=== PATIENT | female | born 1945 | race Caucasian/White ===

== ENCOUNTER 2017-05-28 08:37 | Outpatient (CLI) | payer MEDICARE | END 2017-05-28 08:38 | disposition home or self-care (01) | LOC: BICMAMMO 08:37 | PROVIDERS: ATTEND Internal Medicine | DX: Z12.31 Encounter for screening mammogram for malignant neoplasm of breast (principal) | CPT/HCPCS: 77067; G0202 ==

== ENCOUNTER 2018-01-01 07:42 | Outpatient (CLI) | payer MEDICARE ==
--- NOTE | 2018-01-01 10:32 | CT ---
CONTRAST ENHANCED CT IMAGES OF ABDOMEN AND PELVIS: Date: 01/01/18 HISTORY: Abdominal pain. Patient with previous history of umbilical hernia repair. FINDINGS: Contrast enhanced CT images of abdomen and pelvis demonstrate the lung bases to be unremarkable. No e vidence of free intraperitoneal air seen. The liver and spleen are unremarkable. The pancreas is unremarkable. The gallbladder has been surgica lly removed. Adrenal glands and kidneys are unremarkable. No evidence of periaortic lymphadenopathy seen. No dilated loops of small bowel seen. A normal appendix is visualized. The colon is unremarkable. No definite evidence of colonic distention seen. Anterior periumbilical midline area of postsurgical changes seen. No evidence of recurrent hernias seen. Some postoperative changes are noted in the region. No other sign ificant acute abnormality is seen. Severe L5-S1 vacuum disc changes seen. Bilateral facet hypertrophic changes also seen at L5-S1 facet joints. IMPRESSION: Unremarkable contrast enhanced CT images of the abdomen and pelvis. POS: [facility]
== END 2018-01-01 07:43 | disposition home or self-care (01) ==
LOC: SCSCT 07:42
PROVIDERS: ATTEND Specialist
DX: R10.9 Unspecified abdominal pain (principal)
CPT/HCPCS: 74177; 82565

== ENCOUNTER 2018-05-31 07:56 | Outpatient (CLI) | payer MEDICARE | END 2018-05-31 07:57 | disposition home or self-care (01) | LOC: BICMAMMO 07:56 | PROVIDERS: ATTEND Internal Medicine | DX: Z12.31 Encounter for screening mammogram for malignant neoplasm of breast (principal) | CPT/HCPCS: 77063; 77067 ==

== ENCOUNTER 2019-01-31 07:30 | Day surgery (SDC) | payer MEDICARE ==
[2019-01-30 10:48] VITALS: BMI 29.1
--- NOTE | 2019-01-31 09:33 | NM ---
NM Lymphoscintigraphy HISTORY: Melanoma of the left upper back RADIOPHARMACEUTICAL: 418 uCi of technetium 99m filtered sulfur colloid. Perilesional injection in div ided doses. FINDINGS: There is visualization of lymph nodes in the left supraclavicular and axillary regions. IMPRESSION: Silvis lymph node(s) in the left axilla and supraclavicular region.
[2019-01-31] MEDS ORDERED: ceFAZolin Sodium (SDC) 2 GM/100 ML BAG ONE (09:57)
[2019-01-31] MEDS ORDERED: Heparin 5,000 UNITS/ML VIAL ONE (09:57)
[2019-01-31] MEDS ORDERED: Bacitracin Zinc Ointment 30 gm TUBE ONE (12:34)
[2019-01-31] MEDS ORDERED: Bupivacaine/Epinephrine 0.25% 30 ML VIAL ONE ×2 (12:34→13:47)
[2019-01-31] MEDS ORDERED: Fentanyl 100 MCG/2 ML VIAL ONE ×2 (12:41→16:48)
[2019-01-31] MEDS ORDERED: Isosulfan Blue 50 MG/5 ML VIAL ONE (12:44)
[2019-01-31] MEDS ORDERED: EPINEPHrine 1 MG/ML AMP ONE (13:50)
--- NOTE | 2019-01-31 16:30 | EKG ---
Test Reason : PREOP Blood Pressure : / mmHG Vent. Rate : 068 BPM Atrial Rate : 068 BPM P-R Int : 182 ms QRS Dur : 072 ms QT Int : 432 ms P-R-T Axes : 054 091 087 degrees QTc Int : 459 ms Normal sinus rhythm Rightward axis Borderline ECG When compared with ECG of 08-OCT-2009 08:22, No significant change was found Confirmed by PATRIZIA KWONG, . S. (4) on 01/31/2019 4:29:52 PM Referred By: FOZIA Confirmed By:DR. Margarito ACHARYA MD
[2019-01-31] MEDS ORDERED: Ketorolac Tromethamine 30 MG/ML VIAL ONE (16:36)
--- NOTE | 2019-01-31 17:37 | OP ---
DATE OF PROCEDURE: 01/31/2019 PREOPERATIVE DIAGNOSES: 1. Melanoma (1.3 mm in thickness) of the left upper back. 2. Melanoma in situ, left wrist. 3. Dysplastic nevus, left arm. POSTOPERATIVE DIAGNOSES: 1. Melanoma (1.3 mm in thickness) of the left upper back. 2. Melanoma in situ, left wrist. 3. Dysplastic nevus, left arm. PROCEDURES PERFORMED: 1. Injection of dye for identification of sentinel lymph node (43631). 2. Wide excision of melanoma, left upper back (5 cm including adequate margins). 3. Rotation advancement flap of the back, 25 cm2 including donor and recipient sites (09786). 4. Left supraclavicular sentinel lymph node biopsy (34513). 5. Left axillary sentinel lymph node biopsy (10025). 6. Wide excision of melanoma in situ, left wrist (2.7 cm including adequate margins) (61924). 7. Split-thickness skin graft, left wrist (8 cm2) (71519). 8. Wide excision of dysplastic nevus, left arm (1.8 cm including adequate margins) (39288). 9. Intermediate closure of left arm (7 cm) (95318). DESCRIPTION OF PROCEDURE: Following induction of adequate anesthesia, the patient was prepped and draped in usual sterile fashion in the right lateral decubitus position. Isosulfan blue was injected intradermally all around the patient's melanoma site. After dye had adequate time to take effect, the lesion was widely excised down to and including the underlying fascia, which did not have any blue dye in it. The defect was too large to close primarily. To achieve closure of the left back defect, an inferolateral rhomboid flap was designed and elevated in a subfascial plane. This was rotated and inset using 2-0 PDS suture followed by 3-0 Monocryl suture after a drain had been placed. Attention was turned to the left supraclavicular hardeep basin. Based on anatomic markings from radiology, a supraclavicular incision was made. Dissection was then guided by the Neoprobe as well as the identification of Lymphazurin blue to identify a single lymph node with a count over 1000. The defect was then inspected for hemostasis and closed in layers using 3-0 Monocryl suture. Attention was turned to the left axilla. A similar approach was taken in the supraclavicular region. A single lymph node was identified with a count over 800. The defect was similarly closed. Attention was turned to the left wrist. The lesion was widely excised including adequate margins. The defect cannot be closed primarily. Split-thickness skin graft reconstruction was elected for the left wrist. This was harvested from the ipsilateral thigh at 05/1000 of an inch and meshed at 1-1/2 to 1. It was secured with 4-0 Prolene suture and a sterile dressing. Attention was turned to the left arm. The dysplastic nevus was widely excised including adequate margins. The defect was then closed in layers using interrupted and running 3-0 Monocryl suture. The patient tolerated procedure well. Job ID: [id number]
== END 2019-01-31 18:50 | disposition home or self-care (01) ==
LOC: SDC 07:30
PROVIDERS: ATTEND Plastic Surgery
PROC: 07T20ZZ Resection of Left Neck Lymphatic, Open Approach (ICD-10-PCS; principal; 2019-01-31)
PROC: 0HREX74 Replacement of Left Lower Arm Skin with Autologous Tissue Substitute, Partial Thickness, External Approach (ICD-10-PCS; 2019-01-31)
PROC: 0HQCXZZ Repair Left Upper Arm Skin, External Approach (ICD-10-PCS; 2019-01-31)
PROC: 0HBCXZZ Excision of Left Upper Arm Skin, External Approach (ICD-10-PCS; 2019-01-31)
PROC: 07B60ZX Excision of Left Axillary Lymphatic, Open Approach, Diagnostic (ICD-10-PCS; 2019-01-31)
DX: C43.59 Malignant melanoma of other part of trunk (principal); D03.62 Melanoma in situ of left upper limb, including shoulder; D23.62 Other benign neoplasm of skin of left upper limb, including shoulder; L90.5 Scar conditions and fibrosis of skin; C77.0 Secondary and unspecified malignant neoplasm of lymph nodes of head, face and neck; Z79.82 Long term (current) use of aspirin; Z79.899 Other long term (current) drug therapy
CPT/HCPCS: 11402; 11403; 12032; 14001; 15100; 38500; 78195; 88305; 88307; 88341; 88342; 93005; A9541; Q9968; 93010; J0171; J0690; J1644; J1885; J3010

== ENCOUNTER 2019-02-20 09:53 | Outpatient (CLI) | payer MEDICARE ==
--- NOTE | 2019-02-20 13:48 | CT ---
Exam: Brain CT with and without contrast HISTORY: Melanoma. COMPARISON: None FINDINGS: Noncontrast head CT: No parenchymal hemorrhage. No extra-axial hematoma. No midline shift. Basilar cisterns are patent. Age-appropriate atrophy. Cortical gong-white matter differentiation is preserved. No hydrocephalus. Adequate aeration of the sinuses and mastoid air cells. Intact calvarium. Postcontrast head CT: No pathologic enhancement of the brain parenchyma Hypodensity in the nasopharynx measuring 1 cm with an attenuation coefficient of 40 Hounsfield units. Correlation made with PET imaging performed today does not demonstrate any avid FDG localization. Nevertheless, direct visualization is recommended. IMPRESSION: 1. Unremarkable pre and post contrast head CT. 2. Hypodensity in the right nasopharynx. No evidence of FDG avidity. Nonemergent direct visualization is recommended. CODE T Transcribed Date/Time: 02/20/2019 2:52 PM
--- NOTE | 2019-02-20 14:20 | PET ---
PET CT: 02/20/19 HISTORY: 71-year-old female with malignant melanoma. Exam requested for initial staging. Melanoma left upper limb including shoulder. Melanoma left wrist. TECHNIQUE: PET scan with CT attenuation correction was performed from the vertex through the feet following the intravenous administration of 12.6 millicuries of 15-fluorodeoxyglucose in the right antecubital leonora a. FINDINGS: No haredep hypermetabolism is seen in the neck, chest, axillae, abdomen, pelvis, inguinal, femoral, or popliteal regions. No hypermetabolic pulmonary nodules, liver, adrenal or skeletal lesions are seen. There is physiologic activity in the brain, GI and tracts. The CT scan used for attenuation correction demonstrates no evidence of pleural effusions, or ascites . IMPRESSION: No evidence of metastatic disease. POS: [facility]
[2019-02-20] MEDS ORDERED: Iopamidol 370 76% 100 ML VIAL ONE (15:22)
== END 2019-02-20 09:54 | disposition home or self-care (01) ==
LOC: CT 09:53
PROVIDERS: ATTEND Internal Medicine Hematology & Oncology
DX: C43.62 Malignant melanoma of left upper limb, including shoulder (principal); J39.2 Other diseases of pharynx
CPT/HCPCS: 70470; 78816; A9552; Q9967

== ENCOUNTER 2019-07-16 08:17 | Outpatient (CLI) | payer MEDICARE ==
--- NOTE | 2019-07-16 09:04 | MMO ---
Bilateral MAMMO Bilat Screen [facility]. CLINICAL HISTORY: Patient is 73 years old and is seen for screening. The patient has the following family history of breast cancer: sister, malignant (generic). The patient has no personal history of cancer. VIEWS: The views performed were: bilateral craniocaudal with tomosynthesis and bilateral mediolateral oblique with tomosynthesis. FILMS COMPARED: The present examination has been compared to prior imaging studies performed at [facility] on 04/29/2015, 05/16/2016, 05/28/2017 and 05/31/2018. This study has been interpreted with the assistance of computer-aided detection. MAMMOGRAM FINDINGS: The breasts are heterogeneously dense, which could obscure a lesion on mammography. Finding 1: There are stable benign appearing calcifications seen in both breasts. Finding 2: There are multiple stable masses of varying size with circumscribed margins seen in the left breast. There are no suspicious masses, suspicious calcifications, or new areas of architectural distortion. IMPRESSION: THERE IS NO MAMMOGRAPHIC EVIDENCE OF MALIGNANCY. A ROUTINE FOLLOW-UP MAMMOGRAM IN 1 YEAR IS RECOMMENDED. THE RESULTS OF THIS EXAM WERE SENT TO THE PATIENT. ACR BI-RADS Category 2 - Benign finding MAMMOGRAPHY NOTE: 1. A negative mammogram report should not delay a biopsy if a dominant of clinically suspicious mass is present. 2. Approximately 10% to 15% of breast cancers are not detected by mammography. 3. Adenosis and dense breasts may obscure an underlying neoplasm. Reported by: MEERA CASTILLO MD Electonically Signed: [id number]
--- NOTE | 2019-07-16 10:39 | CT ---
CT CHEST WITH CONTRAST: CT ABDOMEN WITH CONTRAST: CT PELVIS WITH CONTRAST: HISTORY: Malignant melanoma of left upper limb, including shoulder. COMPARISON: PET CT from 02/20/2019. FINDINGS: The lungs are clear. No pneumothorax. No effusion. No solid enhancing mass. No mediastinal adenopathy. No internal mammary adenopathy. No axillary adenopathy. The liver, spleen and pancreas are unremarkable. There is reservoir effect of the common bile duct. No free fluid in the abdomen or pelvis. No dilated loops of large or small bowel. No retroperitoneal or periaortic adenopathy. The appendix is visualized and is normal. There are hypodensities of both kidneys, suggestive of smal l cysts. No hydronephrosis. No suspicious osteolytic or osteoblastic lesions. L5 is a lumbosacral junctional vertebra with the enlarged L5 transverse processes fused with the sacr um. There is grade 1 L4-L5 anterolisthesis due to high-grade facet arthropathy. The sternum and manubrium are intact. No inguinal adenopathy. No iliac adenopathy. No superficial soft tissue abnormality is appreciated. T here appears to be a small focal area of scar in the left upper back, superficial to the scapula. No abnormal enhancement in this local. IMPRESSION: No evidence for measurable disease within the chest, abdomen or pelvis. POS: [facility]
[2019-07-16] MEDS ORDERED: Iopamidol-370 76% 500 ML 1 ML ONE (15:45)
== END 2019-07-16 08:18 | disposition home or self-care (01) ==
LOC: BICCT 08:17
PROVIDERS: ATTEND Internal Medicine Hematology & Oncology
DX: Z12.31 Encounter for screening mammogram for malignant neoplasm of breast (principal); C43.62 Malignant melanoma of left upper limb, including shoulder; Z80.3 Family history of malignant neoplasm of breast
CPT/HCPCS: 36415; 71260; 74177; 77063; 77067; 80053; 82248; 83615; 84100; 84436; 84443; 84550; Q9967

== ENCOUNTER 2020-05-04 08:54 | Outpatient (CLI) | payer MEDICARE ==
--- NOTE | 2020-05-04 11:52 | CT ---
CT OF THE CHEST AND ABDOMEN AND PELVIS WITH IV CONTRAST: INDICATION: History of melanoma of left upper back and left arm. COMPARISON: Prior CT of the chest, abdomen, and pelvis dated 11/13/2019. FINDINGS: No suspicious pulmonary nodule, pleural effusion, or pneumothorax is evident. No enlarged lymph node s are noted. Heart size is within normal limits. There are coronary artery and thoracic aorta calci fications. No focal hepatic lesion is evident. The gallbladder is surgically absent. The pancreas, adrenal gla nds, and spleen appear within normal limits. There are bilateral cysts that are stable. There are moderate calcifications involving the abdominopelvic vasculature. No retroperitoneal or up per abdominal lymphadenopathy is evident. No free fluid is identified. The partially opacified large and small bowel reveal no definite acute abnormality. There is a dequan l retrocecal appendix. The small bowel is of normal caliber. No mesenteric lymphadenopathy is evide nt. No free fluid is grossly evident within the lower abdomen. The bladder is partially decompressed. The uterus, adnexa, bladder, rectum, and perirectal soft tiss ues are unremarkable-appearing. No free fluid or enlarged lymph nodes are evident within the pelvis. No definite acute osseous abnormality is evident. There is scattered degenerative and osteoarthritic change. No suspicious osteolytic or osteoblastic lesion is identified. IMPRESSION: No CT evidence to suggest the presence of metastatic disease in the chest, abdomen, or pelvis. POS: [facility]
== END 2020-05-04 08:55 | disposition home or self-care (01) ==
LOC: SCSCT 08:54
PROVIDERS: ATTEND Internal Medicine Hematology & Oncology
DX: C43.62 Malignant melanoma of left upper limb, including shoulder (principal); C43.59 Malignant melanoma of other part of trunk
CPT/HCPCS: 71260; 74177; 82565